=== PATIENT | female | born 1995 | race Caucasian/White ===

== ENCOUNTER → 2016-08-08 | Outpatient (CLI) | payer OTHER ==
[~2016-08-08] MED LIST: ACET-1311 PO; ANT
[2016-08-08 14:38] LABS: URINE APPEARANCE CLEAR (CLEAR); URINE BILIRUBIN NEG (NEG); URINE COLOR YELLOW; URINE NITRITE NEG (NEG); URINE PH 6.5 (4.5-7.5); URINE SPECIFIC GRAVITY 1.025 (1.000-1.030); UROBILINOGEN NEG (NEG)
[2016-08-08 14:50] LABS: MANUAL MICROSCOPIC REQUIRED? NO; REVIEW REQ? NO
--- NOTE | 2016-08-10 13:11 | CODING QUERY NO DIAGNOSIS ---
TREATMENT RENDERED WITHOUT A DIAGNOSIS : 1995 To promote full compliance with coding requirements relating to patient care, physician participation is requested in all cases of bail agent uncertainty. Please assist us with providing a diagnosis/symptom for the test(s) below: A diagnosis/symptom was not documented on your Order. A valid diagnosis/symptom is required to bill all insurances. Please remember that we are unable to code a diagnosis of rule out, probable, possible, questionable, or suspected. Tests that require a diagnosis: DOS: 08/08/16 * UA CLEAN CATCH DIAGNOSIS: * URINE CULTURE PREGNA DIAGNOSIS: Provider Signature: Date: Thank you Montse Yoder Health Information Management Once completed, please kindly fax back to [phone] For questions please call [phone]
== END | disposition home or self-care (01) ==
LOC: EDBD → C.LABSPEC 13:48
PROVIDERS: ATTEND Obstetrics & Gynecology
DX: Z34.90 Encounter for supervision of normal pregnancy, unspecified, unspecified trimester (principal)

== ENCOUNTER → 2016-08-16 | Outpatient (CLI) | payer OTHER ==
[2016-08-16 15:34] LABS: BASO % 0.2 %; BASO ABS # 0.02 K/uL (0-0.2); COMPLETE YES; EOS % 1.2 %; HEMATOCRIT 40.1 % (37-47); IG% 0.2 %; LYMPH % 15.2 %; LYMPH ABS # 1.42 K/uL (1.2-3.4); MEAN CELL VOLUME 81.7 fL (80-100); MEAN CORPUSCULAR HEMOGLOBIN 28.9 pg (25-34); MEAN CORPUSCULAR HGB CONC 35.4 g/dl (32-36); MEAN PLATELET VOLUME 11.5 fL (7.4-10.4); MONO % 10.7 %; NEUT % 72.5 %; PLATELET COUNT 209 K/uL (130-400); RED BLOOD COUNT 4.91 M/uL (4.2-5.4); WHITE BLOOD COUNT 9.34 K/uL (4.8-10.8)
== END | disposition home or self-care (01) ==
LOC: C.LAB1850 14:41
PROVIDERS: ATTEND Obstetrics & Gynecology
DX: Z34.90 Encounter for supervision of normal pregnancy, unspecified, unspecified trimester (principal)

== ENCOUNTER → 2016-08-16 | Outpatient (CLI) | payer OTHER ==
[2016-08-19 00:57] LABS: CHLAMYDIA TRACH RNA*** NOT DETECTED (NOT DETECTED); GC (NEIS GONORRHOEAE)RNA** NOT DETECTED (NOT DETECTED)
== END | disposition home or self-care (01) ==
LOC: C.LABSPEC 17:58
PROVIDERS: ATTEND Obstetrics & Gynecology
DX: Z34.90 Encounter for supervision of normal pregnancy, unspecified, unspecified trimester (principal)

== ENCOUNTER → 2017-01-12 | Outpatient (CLI) | payer OTHER ==
[2017-01-12 14:45] LABS: URINE APPEARANCE CLEAR (CLEAR); URINE BILIRUBIN NEG (NEG); URINE COLOR DK YELLOW; URINE EPITHELIAL CELL AUTO >30 /lpf (0-5); URINE NITRITE NEG (NEG); URINE PH 6.5 (4.5-7.5); URINE SPECIFIC GRAVITY 1.021 (1.000-1.030); UROBILINOGEN NEG (NEG)
[2017-01-12 14:47] LABS: MANUAL MICROSCOPIC REQUIRED? NO; REVIEW REQ? NO
== END | disposition home or self-care (01) ==
LOC: C.LABSPEC 13:56
PROVIDERS: ATTEND Obstetrics & Gynecology
DX: Z34.82 Encounter for supervision of other normal pregnancy, second trimester (principal); Z3A.00 Weeks of gestation of pregnancy not specified

== ENCOUNTER → 2017-02-23 | Outpatient (CLI) | payer OTHER ==
[2017-02-23 15:04] LABS: HEMATOCRIT 32.4 % (37-47)
== END | disposition home or self-care (01) ==
LOC: C.LAB1850 13:41
PROVIDERS: ATTEND Obstetrics & Gynecology
DX: Z34.82 Encounter for supervision of other normal pregnancy, second trimester (principal); Z3A.00 Weeks of gestation of pregnancy not specified

== ENCOUNTER 2017-03-10 10:51 | Emergency (ER) | payer OTHER ==
[~2017-03-10] VITALS: Ht 167.6 cm; Wt 85.2 kg
[2017-03-10 10:54] VITALS: TEMP 36.8; Ht 167.6 cm; Wt 85.2 kg
[2017-03-10 11:28] LABS: URINE APPEARANCE CLEAR (CLEAR); URINE BILIRUBIN NEG (NEG); URINE COLOR YELLOW; URINE NITRITE NEG (NEG); URINE PH 7.5 (4.5-7.5); URINE SPECIFIC GRAVITY 1.016 (1.000-1.030); UROBILINOGEN NEG (NEG); ZZUR CULT IF INDIC CLEAN CATCH NO
[2017-03-10 11:31] LABS: MANUAL MICROSCOPIC REQUIRED? NO; REVIEW REQ? NO
--- NOTE | 2017-03-10 11:38 | EMERGENCY ROOM VISIT NOTE ---
History Report prepared by Cindy: Vanessa Martinez Under the Supervision of: Dr. Dedrick Vazquez M.D. First contact with patient: 11:02 Chief Complaint: FALL Stated Complaint: BACK PAIN FROM FALL,37 WKS,PER L&D SEE HERE FIRST History of Present Illness The patient is a 21 year old female who presents to the Emergency Room with complaints of an episode of a fall occurring SYRUP BLENDER. The patient is 36 weeks . She slipped walking down the stairs this morning and estimates that she fell down 8 stairs. She denies LOC. She is complaining of right shoulder pain that is worsened with movement. She also notes mid-back pain. The patient rates her pain as a 4/10 in severity. She has felt the baby moving since her fall. She denies any vaginal bleeding. The patient is /A0. This has been a normal . Source of History: patient Onset: SYRUP BLENDER Position: other (global) Symptom Intensity: 4/10 Quality: other (fall) Timing: other (episode) Modifying Factors (Worsening): movement Associated Symptoms: + back pain Note: Pt notes right shoulder pain. Pt denies vaginal bleeding. Review of Systems All systems have been listed, reviewed, and are negative other than those previously mentioned. Please see Additional Medical History Sheet. Past Medical & Surgical Medical Problems: (1) No significant active problems Family History No pertinent history stated. Social History Smoking Status: Never Smoker Marital Status: in relationship Housing Status: lives with family Current/Historical Medications No Active Prescriptions or Reported Meds Allergies Coded Allergies: Latex (Unverified Allergy, Unknown, ITCHY, 03/10/17) Penicillins (Unverified Allergy, Unknown, UNKNOWN, 03/10/17) Physical Exam Vital Signs Date Time Temp Pulse Resp B/P (MAP) Pulse Ox O2 Delivery O2 Flow Rate FiO2 03/10/17 11:57 97 20 102/55 97 03/10/17 10:54 36.8 102 18 114/73 98 Room Air Physical Exam GENERAL: Patient awake, alert, oriented x 3. Patient follows commands. Patient does not appear toxic. Patient is adequately hydrated and well- nourished. SKIN: No erythema, pallor, cyanosis or rash HEENT: Normal head, pupils equal, reactive to light and accommodation. Ears normal. Oral cavity and posterior pharynx appear normal. Neck: Without adenopathy, no neck vein distention. LUNGS: Clear to auscultation. No wheezes, no rales, no rhonchi. HEART: No murmurs. No gallops. No rubs ABDOMEN: No masses, no rebound, no hepatomegaly or splenomegaly. BACK: Patient has slight tenderness over lower thoracic upper lumbar region, no deformity, no break in skin, no bruise. Patient able to bend over without significant pain. EXTREMITIES: No signs of trauma. Slight tenderness in right shoulder, no pain, FROM of both shoulders, no pain with abduction, flexion/extension intact. NEUROLOGIC: Cranial nerves II-XII within normal limits. No gross motor sensory function deficits. Medical Decision & Procedures Laboratory Results Test 03/10/17 11:06 Urine Color YELLOW Urine Appearance CLEAR (CLEAR) Urine pH 7.5 (4.5-7.5) Urine Specific [place] 1.016 (1.000-1.030) Urine Protein NEG (NEG) Urine Glucose (UA) NEG (NEG) Urine Ketones NEG (NEG) Urine Occult Blood NEG (NEG) Urine Nitrite NEG (NEG) Urine Bilirubin NEG (NEG) Urine Urobilinogen NEG (NEG) Urine Leukocyte Esterase NEG (NEG) Laboratory results as stated above per my review. ED Course 1102: Past medical records reviewed. The patient was evaluated in room C3. A complete history and physical examination was performed. 1104: Labor & delivery nurses arrived in the department. They will do a doppler. 1149: The patient discharged to L&D at this time. Medical Decision Nurses notes reviewed. Medical history sheet reviewed. Differential diagnosis includes but is not limited to: fall, fractures, contusions, . The patient is here after fall down 8-10 steps. There was no loss of consciousness. There was no head or neck injury. The patient hurt her right shoulder and mid back. Examination today reveals no signs of fracture or dislocation. Urinalysis was negative for blood. She is able to move both shoulders without difficulty. She is able to bend over without difficulty. I do not believe the benefit outweighs the risk in obtaining imaging on this patient. The patient was sent to the labor and delivery department for further evaluation of her . Medication Reconcilliation Current Medication List: was personally reviewed by me Blood Pressure Screening Patient's blood pressure: Normal blood pressure Impression Primary Impression: Fall Additional Impression: Scribe Attestation The scribe's documentation has been prepared under my direction and personally reviewed by me in its entirety. I confirm that the note above accurately reflects all work, treatment, procedures, and medical decision making performed by me. Departure Information Dispostion Home / Self-Care Prescriptions No Active Prescriptions or Reported Meds Referrals No Doctor, Assigned (PCP) Patient Instructions My [facility] Additional Instructions Go directly to labor and delivery department for further evaluation. Problem Qualifiers Primary Impression: Fall Encounter type: initial encounter Qualified Codes: W19.XXXA - Unspecified fall, initial encounter Additional Impression: Weeks of gestation: 36 weeks Qualified Codes: Z3A.36 - 36 weeks gestation of
[2017-03-10 11:57] VITALS: BP 102/55; PULSE 97; O2SAT 97
== END 2017-03-10 12:04 | disposition home or self-care (01) ==
LOC: C.EDB 10:56 → C.EDC 12:04
DX: O26.93 Pregnancy related conditions, unspecified, third trimester (principal); M54.5 Low back pain; Z3A.36 36 weeks gestation of pregnancy; W10.8XXA Fall (on) (from) other stairs and steps, initial encounter; Z88.0 Allergy status to penicillin; Z91.040 Latex allergy status

== ENCOUNTER 2017-03-10 12:00 | Outpatient (CLI) | payer OTHER ==
--- NOTE | 2017-03-16 13:10 | EDITING REQUIRED CODING QUERY ---
DIAGNOSIS NEEDED To promote full compliance with coding requirements relating to patient care, physician participation is requested in all cases of senior cytogenetics laboratory director uncertainty. Please assist us with the question(s) below: Coding Question: The patient received care in labor and delivery on 03/10/17 as noted within the record. Please document the diagnosis that is being addressed by the medication/treatment. Provider Response: DIAGNOSIS: contractions WEEKS GESTATION: term Thank you for your assistance, Renae De La Vega - Vessel Specialist
== END 2017-03-10 14:05 | disposition home or self-care (01) ==
LOC: C.OPB 12:00 → C.LD 12:01 → C.OPB 14:05
PROVIDERS: ATTEND Obstetrics & Gynecology
DX: O62.9 Abnormality of forces of labor, unspecified (principal); Z3A.00 Weeks of gestation of pregnancy not specified

== ENCOUNTER 2017-04-04 05:14 | Inpatient (IN) | payer OTHER ==
[~2017-04-04] VITALS: Ht 167.6 cm; Wt 87.9 kg
[2017-04-04] MEDS ORDERED: LACTATED RINGER'S 1000ML 1,000 ML IV SCH (05:24)
[2017-04-04] MEDS ORDERED: LACTATED RINGER'S 1000ML 1,000 ML IV PRN (05:24)
[2017-04-04] MEDS ORDERED: LACTATED RINGER'S 1000ML 500 ML IV PRN ×2 (05:26→08:30)
[2017-04-04] MEDS ORDERED: OXYTOCIN 30 UNITS/500ML NSS IV PRN ×2 (05:30→12:30)
[2017-04-04 05:59] VITALS: Ht 167.6 cm; Wt 87.9 kg
[2017-04-04 06:06] LABS: HEMATOCRIT 33.1 % (37-47); MEAN CELL VOLUME 76.1 fL (80-100); MEAN CORPUSCULAR HEMOGLOBIN 23.7 pg (25-34); MEAN CORPUSCULAR HGB CONC 31.1 g/dl (32-36); MEAN PLATELET VOLUME 10.2 fL (7.4-10.4); PLATELET COUNT 163 K/uL (130-400); RED BLOOD COUNT 4.35 M/uL (4.2-5.4); WHITE BLOOD COUNT 13.06 K/uL (4.8-10.8)
[2017-04-04] MEDS ORDERED: ANT ×2 (06:23)
[2017-04-04] MEDS ORDERED: ACET-1311 PO ×2 (06:24)
[2017-04-04] MEDS ORDERED: EpHEDrine SULFATE INJ 50 MG/ML AMP ONE (07:33)
[2017-04-04] MEDS ORDERED: BUPIVACAINE 0.25% 30 ML VIAL ONE (07:33)
[2017-04-04] MEDS ORDERED: FENTANYL CITRATE INJ 50 MCG/1 ML 2 ML VIAL ONE (07:33)
[2017-04-04] MEDS ORDERED: FENTANYL 2MCG/ML ROPIV 1.25MG/ML 100ML BAG EPI ONE (07:33)
[2017-04-04] MEDS ORDERED: NALOXONE HCL INJ 0.4 MG/1 ML VIAL/CARP IV PRN (08:30)
[2017-04-04] MEDS ORDERED: EpHEDrine SULFATE INJ 50 MG/ML AMP IV PRN (08:30)
[2017-04-04] MEDS ORDERED: DiphenhydrAMINE HCL 50 MG/ML VIAL IV PRN (08:30)
[2017-04-04] MEDS ORDERED: ONDANSETRON INJ 2 MG/ML 2 ML VIAL IV PRN (08:30)
[2017-04-04] MEDS ORDERED: FENTANYL 2MCG/ML ROPIV 1.25MG/ML 100ML BAG EPI PRN (08:30)
[2017-04-04] MEDS ORDERED: NALBUPHINE HCL INJ 10 MG/ML AMP IV PRN (08:30)
[2017-04-04] MEDS ORDERED: NALOXONE HCL INJ 1 MG in SODIUM CHLORIDE 0.9% 1000ML 1,000 ML IV PRN (08:30)
[2017-04-04] MEDS ORDERED: METHYLERGONOVINE MALEATE 0.2 MG/ML AMP ONE (12:02)
[2017-04-04] MEDS ORDERED: LANOLIN OINT EXT PRN ×2 (12:30)
[2017-04-04] MEDS ORDERED: SUPERCREAM 0.870 % 15GM JAR EXT PRN (12:30)
[2017-04-04] MEDS ORDERED: BENZOCAINE 20% AER SPR 82.5 GM CAN EXT PRN (12:30)
[2017-04-04] MEDS ORDERED: HYDROCORTISONE ACETATE 25 MG SUPP PR PRN (12:30)
[2017-04-04] MEDS ORDERED: METHYLERGONOVINE MALEATE 0.2 MG/ML AMP IM ONE (12:45)
[2017-04-04] MEDS ORDERED: DIPHTHERIA/TETANUS/PERTUSSIS 0.5 ML SYR/VIAL IM. ONE (12:45)
--- NOTE | 2017-04-04 13:07 | DELIVERY SUMMARY ---
DATE OF OPERATION: 04/04/2017 PREOPERATIVE DIAGNOSES: 1. Intrauterine at 39-0/7 weeks. 2. Spontaneous rupture of membranes and active labor. POSTOPERATIVE DIAGNOSES: 1. Intrauterine at 39-0/7 weeks. 2. Spontaneous rupture of membranes and active labor. 3. Moderate shoulder dystocia. PROCEDURES: 1. Epidural anesthesia. 2. Normal spontaneous vaginal delivery. 3. McRobert's maneuver, superpubic pressure, counter clockwise rotation of the anterior shoulder. 4. Inferior periclitoral laceration and left labial laceration with repair. SURGEON: Nasrin Joaquin MD. ANESTHESIA: Epidural. ESTIMATED BLOOD LOSS: 500 mL. DESCRIPTION OF PROCEDURE: The patient presented to the labor and delivery in active labor and grossly ruptured. She was 6 cm dilated. She underwent an epidural anesthesia and then progressed to complete, complete in 0 to +1 station. She was feeling a lot of pressure and wanted to push, she was allowed to push. She then pushed effectively although the baby moved somewhat slowly. I was concerned that we were going to have a shoulder dystocia so called for extra help. The patient was able to deliver the vertex spontaneously initially in VINOD position but then they had rest due to GEO position. There was no nuchal cord. A moderate shoulder dystocia was then encountered which was resolved with placing the bed flat, McRobert's maneuver, suprapubic pressure and then rotating the anterior shoulder which was the baby's left shoulder, counter clock tanner. The rest of the body then delivered slowly. There was an immediate cry and the baby was vigorous so the nose and mouth were bulb suctioned and the cord was clamped and cut. The infant was placed on maternal abdomen for drying and attention. Cord blood and segment were obtained. Placenta was delivered spontaneously intact with a 3-vessel cord. Hemostasis was obtained with dilute Pitocin, fundal massage and IM Methergine. I did explore the uterus with return of some minimal clot 550 mL and no products of conception. Attention was then turned to tears. Cervix, sulci, rectum and perineum were intact. The left labial laceration was repaired with interrupted stitches of 3-0 and 4-0 Vicryl and then an inferior periclitoral laceration was noted. Two bleeders were noted, each were attended to with a [id number] suture of 4-0 Vicryl until hemostasis was good and then the skin edges were approximated with interrupted stitches of 4-0 Vicryl. Estimated blood loss 500 mL. Mother and baby doing well at the end of the delivery. Apgars 8 and 9, weight pending. I attest to the content of the Intraoperative Record and any orders documented therein. Any exception s are noted below.
--- NOTE | 2017-04-04 13:12 | DELIVERY SUMMARY ---
DATE OF OPERATION: 04/04/2017 PREOPERATIVE DIAGNOSES: 1. Intrauterine at 39 weeks. 2. Active labor with spontaneous rupture of membranes. POSTOPERATIVE DIAGNOSES: 1. Intrauterine at 39 weeks. 2. Active labor with spontaneous rupture of membranes. 3. Moderate shoulder dystocia. PROCEDURES: 1. Epidural anesthesia. 2. Normal spontaneous vaginal delivery. 3. Periclitoral laceration and left labial laceration with repair. SURGEON: Dr. Nasrin Joaquin. ANESTHESIA: Epidural. ESTIMATED BLOOD LOSS: 500 mL. DESCRIPTION OF PROCEDURE: The patient presented to labor and delivery, ruptured and in active labor. She underwent epidural anesthesia and progressed from 8 cm to 10 cm and 0 to +1 station. She was feeling pressure to push and so, was allowed to push. The patient moved the vertex very slowly. I suspect we were going to have a shoulder dystocia, but she did continue to have positive movement with her own effort. The fetus initially delivered facing VINOD and then restituted to GEO. There was no nuchal cord. Moderate shoulder dystocia was encountered, which was relieved by placing the patient flat, Mary and suprapubic pressure and then rotating the anterior shoulder counter clock tanner. The shoulder dystocia lasted less than a minute. The rest of the body then slowly delivered. There was immediate cry. The nose and mouth were bulb suctioned and the cord was clamped and cut. The infant was placed on the maternal abdomen for drying and attention. Cord blood and segment were obtained. Placenta was delivered spontaneously intact with a 3-vessel cord. Cervix, sulci, and rectum as well as the perineum were examined and found to be intact. The left labial laceration was repaired with 3-0 and 4-0 Vicryl in an interrupted fashion. There was a periclitoral tear just underneath the clitoris. There were 2 bleeding vessels from this. Each attended to with a [id number] of suture of 4-0 Vicryl to achieve hemostasis. The skin was then reapproximated with interrupted sutures of 4-0 Vicryl and hemostasis was noted to be excellent. The placenta was delivered spontaneously intact with a 3-vessel cord. Hemostasis was obtained with dilute Pitocin, fundal massage and IM methargen. I also explored the uterus with return of very minimal clot and no products. Estimated blood loss 500 mL. Apgars were 8 and 9. Mother and baby doing well at the end of the delivery. I attest to the content of the Intraoperative Record and any orders documented therein. Any exception s are noted below.
[2017-04-04 14:40] VITALS: BP 119/69; PULSE 100; TEMP 36.9; O2SAT 97
[2017-04-04] MEDS: IBUPROFEN 600 MG TAB PO PRN ×2 (14:45→21:02)
[2017-04-04 15:30] VITALS: BP 132/74; PULSE 97; TEMP 36.8
--- NOTE | 2017-04-04 16:49 | Anesthesia Procedure Note ---
Anesthesia Epidural Removal Nt Date & Time Apr 04, 2017 at 16:49 Vital Signs Pain Intensity: 3.0 Vital Signs Past 12 Hours Date Time Temp Pulse Resp B/P (MAP) Pulse Ox O2 Delivery O2 Flow Rate FiO2 04/04/17 15:30 36.8 97 16 132/74 (93) Room Air 04/04/17 15:30 Room Air 04/04/17 14:40 36.9 100 20 119/69 (86) 97 Room Air Notes Mental Status: alert / awake / arousable, participated in evaluation Nausea / Vomiting: adequately controlled Pain: adequately controlled Airway Patency, RR, SpO2: stable & adequate BP & HR: stable & adequate Hydration State: stable & adequate Neuraxial Anesthesia: was administered Anesthetic Complications: no major complications apparent, pt satisfied with anesthetic care Epidural: removed without complications, with tip intact
[2017-04-04 19:30] VITALS: BP 103/65; PULSE 85; TEMP 36.8
[2017-04-04] MEDS: DOCUSATE SODIUM 100 MG CAP PO SCH (19:56)
[2017-04-04 23:50] VITALS: BP 102/66; PULSE 94; TEMP 37.1
[2017-04-05] MEDS: IBUPROFEN 600 MG TAB PO PRN ×4 (03:20→19:43)
[2017-04-05 03:25] VITALS: BP 110/65; PULSE 69; TEMP 36.7
[2017-04-05] MEDS: OXYCODONE/ACETAMINOPHEN 5-325 TAB PO PRN ×3 (03:58→22:26)
--- NOTE | 2017-04-05 07:22 | Progress Note ---
Subjective Apr 05, 2017. Subjective conversation w/ patient, physical exam, chart review, lab review Ambulation: ambulating normally Voiding: no voiding problems Passing Gas: Yes Diet Tolerance: Regular Diet Lochia: Moderate Feeding Type: Breast Feeding Pain: controlled Review of Systems Respiratory: No shortness of breath Cardiac: No chest pain Abdomen: No nausea, No vomiting Female : No dysuria Objective Vital Signs Date Time Temp Pulse Resp B/P (MAP) Pulse Ox O2 Delivery O2 Flow Rate FiO2 04/05/17 03:25 36.7 69 18 110/65 (80) Room Air 04/04/17 23:50 Room Air 04/04/17 23:50 37.1 94 18 102/66 (78) Room Air 04/04/17 19:30 36.8 85 16 103/65 (78) Room Air 04/04/17 15:30 36.8 97 16 132/74 (93) Room Air 04/04/17 15:30 Room Air 04/04/17 14:40 36.9 100 20 119/69 (86) 97 Room Air Physical Exam General Appearance: WELL-APPEARING, WD/WN, NO APPARENT DISTRESS Respiratory/Chest: lungs clear, normal breath sounds, no respiratory distress Cardiovascular: regular rate, rhythm, no gallop Abdomen: normal bowel sounds, soft Fundus: Firm, Tender (appropriately tender), Relation to Umbilicus (at level of U) Extremities: non-tender, normal inspection, no calf tenderness Laboratory Results Last 24 Hours Test 04/05/17 04:44 Assessment and Plan Post- Day#: 1 Continue Routine Care: O+ / GBS - / RI Hbg 10.3 on adm, today pending. Pt's pain is controlled Encourage ambulation, , continue motrin/tylenol Continue routine post care FRANCISCAGISSELLE CAMP PGY 1 FMR Resident Physician Supervision Note: I interviewed and examined the patient. Discussed with Dr. Camp and agree with findings and plan as documented in the note. Any exceptions or clarifications are listed here: Doing well. Routine PP1. Documented By: Nasrin Joaquin Resident Tracking Resident Involvement: Resident Care Provided Care Provided: OB Delivery
[2017-04-05 07:38] VITALS: BP 105/68; PULSE 78; TEMP 36.6
[2017-04-05] MEDS: DOCUSATE SODIUM 100 MG CAP PO SCH ×2 (07:50→19:41)
[2017-04-05 08:19] LABS: HEMATOCRIT 26.1 % (37-47)
[2017-04-05 12:20] VITALS: BP 119/73; PULSE 102; TEMP 36.6
[2017-04-05 15:25] VITALS: BP 113/68; PULSE 89; TEMP 36.5
[2017-04-05] MEDS: ACETAMINOPHEN 325 MG TAB PO PRN (16:21)
[2017-04-05 23:15] VITALS: BP 120/67; PULSE 89; TEMP 36.4; O2SAT 97
[2017-04-06] MEDS: IBUPROFEN 600 MG TAB PO PRN ×2 (04:41→11:59)
--- NOTE | 2017-04-06 06:09 | Discharge Instructions ---
Discharge Instructions Date of Service Apr 06, 2017. Admission Reason for Admission: LABOR Discharge Discharge Diagnosis / Problem: vaginal delivery Discharge Goals Goal(s): Routine recovery after delivery Activity Recommendations Activity Limitations: per Instructions/Follow-up section . Instructions / Follow-Up Instructions / Follow-Up ACTIVITY RECOMMENDATIONS: * Gradual return to full activity over the next 2-3 weeks. * No lifting - nothing heavier than baby over the next 2-3 weeks. * Do not engage in vigorous exercise, sexual activity or sports until cleared by your physician. * Do not drive or operate any motorized equipment until cleared by your physician. * You may shower/bathe daily. MEDICATIONS: For discomfort or pain, you may use Acetaminophen (Tylenol), Ibuprofen (Advil), or Naproxen (Aleve) following the package directions. For constipation you may use Colace following the package directions. BREAST CARE: If you are not breast feeding: * Wear a supportive bra 24 hours a day for one to two weeks. * Avoid stimulating your breasts and nipples as much as possible during the first few weeks after delivery. * When taking a shower, have the warm water hit your back, not breasts. * When your breasts feel full, apply ice packs. Usually three to four times a day helps ease the discomfort. * Take a mild pain medication (Tylenol / Motrin) when you are uncomfortable. If breast feeding: * Use breast milk to lubricate nipples. Lansinoh cream may be used for sore nipples. You do not need to remove cream prior to breast feeding. If using a different brand of cream, check the label for directions regarding removal of cream prior to nursing. * Wear a supportive bra. * If having problems with breasts or breast feeding, call a performance improvement consultant or your health care provider. EPISIOTOMY CARE: After delivery, if you have an episiotomy (stitches), the following steps will ease discomfort and aid healing. * For the first 24 hours after delivery, place ice packs next to your episiotomy to help reduce swelling. * After the first 24 hour-period, sitz baths, either portable or in the tub, are suggested. A shower with a shower arm sprayed over the episiotomy may be comforting. * Lien care should be done after each voiding and bowel movement. Squirt warm water from a plastic bottle over the perineum (region of the body between the anus and urinary opening) and pat dry. * Use Dermoplast to ease discomfort. Shake container. [place] directly over the episiotomy. Place a Tucks on a clean sanitary pad next to your episiotomy. SPECIAL CARE INSTRUCTIONS: When you are discharged from the hospital, it is important for you to follow the instructions listed below: * During the first week at home, you should be able to care for yourself and your baby. In addition, the usual light household activities are encouraged. * Limit your activities to the way you feel. Do not try to clean the house or move furniture. Be sensible. * If you actively engage in sports and have done so up until the time of your delivery, you may resume these activities as soon as you feel able. This may take up to one month or even longer. Use good judgment. * Continue to take your vitamins for at least six weeks after the of your baby. * Your diet need not be limited unless you were on a special diet before your delivery. Breast-feeding mothers need around 2500 calories per day and at least 64-80 ounces of fluid per day (8 to 10 glasses). * You should eat foods from the four major food groups. Crash diets or fad diets are to be avoided. Eating lean meats, fresh fruits and vegetables, low-fat dairy products, high fiber foods and a regular exercise program, will help you get back to your pre- weight without putting your health at risk. * Constipation is sometimes a problem after delivery. Take a mild laxative as needed. If breast feeding, Milk of Magnesia is acceptable to use. You may use a suppository or Fleets enema if no episiotomy. * A daily shower or tub bath is suggested. Be sure to thoroughly and gently dry the perineum. * A bloody vaginal discharge will usually continue until around four weeks post . A small amount of bleeding may continue for as long as six weeks. Vaginal discharge changes from the bright red bleeding after delivery to pink then brownish and finally yellowish-pink before becoming white and disappearing. * Bleeding may increase with activity. Your first period may come in 4-8 weeks. If you are breast feeding, your period may be delayed even longer. * [place] (sex) can begin whenever both you and your partner feel comfortable and do not have any form of genital infection. It is recommended that you wait at least six weeks for internal and external healing to occur. If you have questions, please talk to your health care practitioner. A condom should be used to prevent infection and . * Foreplay, gentle intercourse and lubrication is very important the first several times to prevent pain. A water-based lubricant such as K-Y jelly or Astroglide may be used. * If you have RH negative blood and your baby is RH positive, you will receive RHOGAM by injection prior to discharge. The nurse will give you a card to keep with you that has the date and place that you received RHOGAM after delivery. * During your care, you had a Rubella screen done to check for the presence of rubella antibodies in your blood. If your test was negative, you will receive a Rubella vaccine prior to discharge. This vaccine may cause a fever, soreness at the injection site and flu-like symptoms. If these symptoms persist, notify your health care practitioner. is not advised for one month after a Rubella vaccine. * Verbalizes understanding of car seat law as reviewed with patient nursing. * Car Seat hand-out given and reviewed with patient by nursing. * Shaken baby information reviewed with patient by nursing. Call you doctor if: * Heavy bleeding (saturating several pads an hour) or passing clots the size of your fist. * A fever >101 degrees F (38.3 degrees C) on two occasions four hours apart and /or chills. * Unusual pain in the pelvic or vaginal areas. * "Baby Blues" lasting longer than two weeks. If you have any questions or concerns, call your health care practitioner at . FOLLOW UP VISIT: * Please call the office at to schedule a 6 week examination. It is important you keep this appointment. It is important for you to make arrangements for either yearly or twice yearly check-ups thereafter. Current Hospital Diet Patient's current hospital diet: Regular OB Diet Discharge Diet Recommended Diet: Regular Diet Pending Studies Studies pending at discharge: no Medical Emergencies . Who to Call and When: Medical Emergencies: If at any time you feel your situation is an emergency, please call 911 immediately. . Non-Emergent Contact Non-Emergency issues call your: Primary Care Provider . . "Provider Documentation" section prepared by Claudette Bar. . VTE Core Measure Inpt VTE Proph given/why not?: Treatment not indicated
--- NOTE | 2017-04-06 06:33 | Progress Note ---
Subjective Apr 06, 2017. Subjective conversation w/ patient, physical exam Ambulation: ambulating normally Voiding: no voiding problems Passing Gas: Yes Diet Tolerance: Regular Diet Lochia: Moderate Feeding Type: Breast Feeding Review of Systems Constitutional: No fever, No chills Respiratory: No cough Cardiac: No chest pain Abdomen: No nausea, No vomiting Objective Vital Signs Date Time Temp Pulse Resp B/P (MAP) Pulse Ox O2 Delivery O2 Flow Rate FiO2 04/05/17 23:15 36.4 89 18 120/67 (84) 97 Room Air 04/05/17 23:15 97 Room Air 04/05/17 15:25 36.5 89 20 113/68 (83) Room Air 04/05/17 15:25 Room Air 04/05/17 12:20 36.6 102 16 119/73 (88) Room Air 04/05/17 08:05 Room Air 04/05/17 07:38 36.6 78 18 105/68 (80) Room Air Physical Exam General Appearance: WELL-APPEARING, NO APPARENT DISTRESS Respiratory/Chest: no respiratory distress, no accessory muscle use Cardiovascular: no edema Abdomen: non tender, soft Fundus: Firm Extremities: no pedal edema, no calf tenderness Laboratory Results Last 24 Hours Test 04/05/17 07:58 Hemoglobin 8.1 g/dL Hematocrit 26.1 % Assessment and Plan Problem List Medical Problems: (1) Fall Status: Acute (2) Status: Acute Post- Day#: 2 Continue Routine Care: Discharge instructions reviewed.
[2017-04-06] MEDS: ACETAMINOPHEN 325 MG TAB PO PRN (07:13)
[2017-04-06] MEDS: DOCUSATE SODIUM 100 MG CAP PO SCH (08:56)
[2017-04-06 09:00] VITALS: BP 117/70; PULSE 88; TEMP 36.4; O2SAT 98
[2017-04-06 12:15] VITALS: BP_DIAS 70; PULSE 88; TEMP 36.4
== END 2017-04-06 12:15 | disposition home or self-care (01) | DRG 775 ==
LOC: C.LD 05:14 → C.OPB 05:14 → C.LD 05:26 → C.OPB 05:26 → C.OBG 14:30
PROVIDERS: ADMIT Obstetrics & Gynecology; ATTEND Obstetrics & Gynecology
PROC: 0HQ9XZZ Repair Perineum Skin, External Approach (ICD-10-PCS; principal; 2017-04-04)
PROC: 10E0XZZ Delivery of Products of Conception, External Approach (ICD-10-PCS; principal; 2017-04-04)
DX: O66.0 Obstructed labor due to shoulder dystocia (principal); O70.0 First degree perineal laceration during delivery; Z3A.39 39 weeks gestation of pregnancy; Z37.0 Single live birth

== ENCOUNTER → 2017-10-03 | Outpatient (CLI) | payer OTHER | END | disposition home or self-care (01) | LOC: C.PAPS 17:48 | PROVIDERS: ATTEND Obstetrics & Gynecology | DX: Z12.4 Encounter for screening for malignant neoplasm of cervix (principal); Z11.51 Encounter for screening for human papillomavirus (HPV) ==

== ENCOUNTER → 2017-10-03 | Outpatient (CLI) | payer OTHER ==
[2017-10-03 17:34] LABS: BASO % 0.1 %; BASO ABS # 0.01 K/uL (0-0.2); EOS ABS # 0.07 K/uL (0-0.5); HEMATOCRIT 36.2 % (37-47); HEMOGLOBIN 12.1 g/dL (12.0-16.0); IG# 0.02 K/uL (0.00-0.02); LYMPH % 21.9 %; MEAN CELL VOLUME 77.4 fL (80-100); MEAN CORPUSCULAR HEMOGLOBIN 25.9 pg (25-34); MEAN CORPUSCULAR HGB CONC 33.4 g/dl (32-36); MONO % 7.5 %; MONO ABS # 0.55 K/uL (0.11-0.59); NEUT % 69.2 %; NEUT ABS # 5.07 K/uL (1.4-6.5); PLATELET COUNT 214 K/uL (130-400); RED CELL DISTRIBUTION WIDTH CV 14.8 % (11.5-14.5); RED CELL DISTRIBUTION WIDTH SD 41.6 fL (36.4-46.3); WHITE BLOOD COUNT 7.32 K/uL (4.8-10.8)
== END | disposition home or self-care (01) ==
LOC: C.LAB1850 15:18
PROVIDERS: ATTEND Obstetrics & Gynecology
DX: Z34.81 Encounter for supervision of other normal pregnancy, first trimester (principal)

== ENCOUNTER 2019-12-30 07:38 | Inpatient (IN) ==
[2019-12-30] MEDS ORDERED: CEFAZOLIN 1000MG 1,000 MG/7.5 ML SYR IV PRN (08:19)
[2019-12-30] MEDS ORDERED: OXYTOCIN 30 UNITS/500 ML BAG IV PRN ×3 (08:19→18:35)
[2019-12-30] MEDS ORDERED: CEFAZOLIN 2000MG 2,000 MG/15 ML SYR IV STA (08:23)
[2019-12-30 08:36] LABS: Hematocrit (blood only) 34.7 % (37-47); Hemoglobin 11.2 g/dL (12.0-16.0); Mean Corpuscular Hemoglobin 25.2 pg (25-34); Platelet Count 145 K/uL (130-400); RDW Coefficient of Variation 14.8 % (11.5-14.5); RDW Standard Deviation 41.7 fL (36.4-46.3); Red Blood Count 4.45 M/uL (4.2-5.4); White Blood Count 7.63 K/uL (4.8-10.8)
[2019-12-30] MEDS: LACTATED RINGER'S 1,000 ML IV PRN ×2 (08:37→16:46)
[2019-12-30 08:38] LABS: Mean Corpuscular Hgb Conc 32.3 g/dL (32-36)
--- NOTE | 2019-12-30 08:41 | History & Physical Report ---
Date of Service December 30, 2019 Assessment & Plan (1) Encounter for induction of labor: PNL: Rh pos, RI, GBS positive, COVID neg Will start cefazolin for GBS positive status Admit, labs, IV Epidural if/when desired; anesthesiology consult placed Proceed with induction of labor per Pitocin augmentation protocol. Anticipate (2) : Admission and Anticipated Discharge Date Admission Date: December 30, 2019 History of Present Illness Primary Care Provider: Chandrakant Horne Svetlana Marinelli is a 24 y/o female currently at 39 2/7 WGA with an DEVIN 01/04/20 as determined by LMP who is here for elective IOL. She has a hx of migraines and is followed by neurology; pt was told to take magnesium and vit B2 daily for BRAVO prevention but she notes that she has not taken either of these in 3 weeks. Pt denies BRAVO at this time. She has been taking Tums for heartburn/nausea; last dose around 0100 this morning. She did not take a PNV throughout the . Pt is GBS+ and has a hx of penicillin allergy. She does desire a PPTL and has signed consent with Dr. Joyce. - contractions; + movement; - fluid loss; - bloody show Had regular appointments with OB. Blood type: O+ Antibody screen: neg Labs 06/06/19 Rubella: immune VDRL/RPR: nonreactive Gonorrhea: neg Chlamydia: neg HIV: neg HbSAg: neg GBS: POSITIVE, allergic to penicillin COVID-19 negative 12/23/19 Other screens: panorama/quad declined Allergies Allergy/AdvReac Type Severity Reaction Status Date / Time bee venom protein (honey bee) Allergy Severe SHORTNESS Verified 12/27/19 11:54 OF BREATH latex Allergy Intermediate ITCHY Verified 12/27/19 11:54 Penicillins Allergy Unknown UNKNOWN Verified 12/27/19 11:54 Home Medications Home Medications Medication Instructions Recorded Confirmed Type magnesium oxide 400 mg (241.3 mg 400 mg PO DAILY #30 tab 08/22/19 12/27/19 Rx magnesium) tablet metoclopramide HCl 5 mg tablet 5 mg PO DAILY PRN #10 tab 08/22/19 12/27/19 Rx riboflavin (vitamin B2) 400 mg 400 mg PO DAILY 10/31/19 12/27/19 History tablet sumatriptan succinate 25 mg tablet See Rx Instructions PO .COMPLEX #8 10/31/19 12/27/19 Rx tab Patient History Medical History (Updated 12/30/19 @ 08:37 by Crystal Fish DO) Encounter for anatomic survey Encounter for pre-operative examination Fall Normal intrauterine in third trimester (spontaneous vaginal delivery) Varicella Surgical History History of adenoidectomy History of myringotomy History of tonsillectomy History of tooth extraction Family History Mother Congestive heart failure Diabetes Uterine cancer Cardiomyopathy Grandmother (Paternal) Breast cancer Grandfather (Maternal) Myocardial infarction Social History Smoking Status: Never smoker Hx Alcohol Use: No Hx Substance Use: No Preferred Language: Yakut Communication Ability: Effective Mail Order Biller Required: No Beliefs That Will Affect Care: None marital status: Single marital status details: Boogie Todd (23) [phone] Current Living Situation: Spouse Current Living Situation Comment: Pt. lives with her 4 children, and FOB, 1 cat, outside cat current occupational status: unemployed current occupation: unemployed Other Information That Helps Us Care for You: No Feels Safe at Home: Yes Safety Concerns: Feels Safe At This Time OB History G1--09/23, 8#3oz, , no issues G2--09/23, sab G3--01/27, , 41 weeks, 9#1oz, no issues G4--03/31, 40 weeks, 10#40z, shoulder dystocia g5--05/01, 39 weeks, 8#3oz, [employer] History noncontributory Review of Systems Denies fever or chills. Denies shortness of breath or cough. Denies chest pain. + heartburn controlled with OTC Tums. Denies breast pain. Denies dysuria or hematuria. + leg swelling. Denies leg pain. Denies headache or changes in vision. Physical Exam Physical Exam: General: Alert, oriented. No acute distress. Cardiac: Regular rate and rhythm, no murmurs/rubs/gallops. Respiratory: Clear to auscultation bilaterally a/p, no wheezes/rales/rhonchi. No increased work of breathing. Symmetrical chest rise. No respiratory distress. Abdomen: Gravid. Vertex position. + heart tones. - palpable contractions. EFW 7-8# Pelvic: Dilation 3cm; Effacement 50%; Station -[address] Botello External FHT and external uterine monitors used; Category I tracing; moderate FHT variability. Lower Extremities: 1+ b/l LE edema. No deep calf pain. Results & Data ([facility]) Vital Signs (Past 12 Hours) Vital Signs Pulse BP 12/30/19 08:08 90 133/70 12/30/19 07:41 102 H 156/78 H Laboratory Results Labs at admission today H.2 Hct: 34.7 WBC: 7.63 Plt: 145 Supervising Physician Co-Signing Physician Notes Resident Physician Supervision Note: I interviewed and examined the patient. Discussed with Dr. Fish and agree with findings and plan as documented in the note. Any exceptions or clarifications are listed here: Patient is a who presents for elective induction at 39 weeks. 3rd delivery complicated by shoulder dystocia with a 10# baby. essentially uncomplicated. category one fetus. GBS positive and will receive ancef. Anticipate . efw 9-10# Documented By: Nasrin Joaquin MD, FACOG
--- NOTE | 2019-12-30 12:19 | Labor Progress Brief Note ---
Date of Service December 30, 2019 Subjective uncomfortable, requesting epidural Assessment & Plan (1) Encounter for induction of labor: plan epidural and then likely arom. anticipate . Admission and Anticipated Discharge Date Admission Date: December 30, 2019 Physical Exam Constitutional: WD/WN, vitals as above Psychiatric: A+Ox3, euthymic affect Genitourinary: cx--4/75/-2 toco--q4-5min, pit at 10 efm--145 with mod variability, accels to 160s, no decels Results & Data ([facility]) Vital Signs (Past 12 Hours) Vital Signs Temp Pulse Resp BP 12/30/19 08:56 37.0 C 90 22 133/70 12/30/19 08:08 90 133/70 12/30/19 07:41 102 H 156/78 H Coding Level of Care Code None Diagnoses Encounter for induction of labor Z34.90
[2019-12-30] MEDS ORDERED: ePHEDrine sulfate 50 MG/ML AMP ONE (12:20)
[2019-12-30] MEDS ORDERED: BUPIVACAINE 0.25% 30 ML VIAL ONE (12:20)
[2019-12-30] MEDS ORDERED: fentaNYL 2MCG/ML ROPIV 1.25MG/ML 100 ML BAG EPI ONE (12:21)
[2019-12-30] MEDS ORDERED: fentaNYL citrate 100 MCG/2 ML VIAL ONE (12:21)
--- NOTE | 2019-12-30 12:24 | Anesthesiology Consultation ---
Date of Service December 30, 2019 Assessment & Plan ASA ASA2 Proposed Anesthesia Anesthesia Type: Labor Epidural Risk / Benefits Reviewed With: PT / POA / Parent / Guardian, Accepts Plan and Informed Consent Obtained History Height/Weight Height: 5 ft 6 in Weight: 91.777 kg Allergies Allergy/AdvReac Type Severity Reaction Status Date / Time bee venom protein (honey bee) Allergy Severe SHORTNESS Verified 12/27/19 11:54 OF BREATH latex Allergy Intermediate ITCHY Verified 12/27/19 11:54 Penicillins Allergy Unknown UNKNOWN Verified 12/27/19 11:54 Medications Active Medications Generic Name Dose Route Start Last Admin Trade Name Freq PRN Reason Stop Dose Admin Lactated Ringer's 1,000 mls @ 125 mls/hr 12/30/19 08:19 12/30/19 12:18 Lr IV 01/01/20 08:18 999 mls/hr .Q8H PRN Infusion L&D Protocol Protocol Oxytocin 30 units in 500 mls @ 8 mls/hr 12/30/19 09:37 12/30/19 11:25 Pitocin IV 01/01/20 09:36 0.48 units/hr .Q24H PRN 8 mls/hr Labor Induction/Augmentation Titration Protocol 0.48 UNITS/HR Past Medical History Medical History Encounter for anatomic survey Encounter for pre-operative examination Fall Normal intrauterine in third trimester (spontaneous vaginal delivery) Varicella Exercise / Class Metabolic Activity II 4-5 Yardwork/Stairs/Walk up hill Past Family History Family History Mother Congestive heart failure Diabetes Uterine cancer Cardiomyopathy Grandmother (Paternal) Breast cancer Grandfather (Maternal) Myocardial infarction Past Surgical History Surgical History History of adenoidectomy History of myringotomy History of tonsillectomy History of tooth extraction Past Anesthesia History No Hx of Anesthesia Complications and No Family Hx of Anesthesia Complications History of PONV No Hx of PONV and No Hx of Motion Sickness Social History Smoking Status: Never smoker Hx Alcohol Use: No Hx Substance Use: No Review of Systems denies fever/cough/ colds/ chest pain/ SOB/ NARCISO Constitutional: no fever and no chills Respiratory: no cough and no dyspnea denies NARCISO Cardiovascular: no chest pain and no dyspnea on exertion Physical Exam Vital Signs Last Vital Signs Temp 37.0 C 12/30/19 08:56 Pulse 74 12/30/19 13:26 Resp 18 12/30/19 12:31 BP 126/79 12/30/19 13:22 Pulse Ox 98 12/30/19 13:26 ENMT Mouth: no TMJ abnormality and no dentition abnormality Thyromental Distance: > or= 3.5 Finger Breadths Mallampati Class: II Neck neck extension not limited Respiratory normal respiratory effort; no respiratory distress Auscultation: lungs clear to auscultation bilaterally Cardiovascular Rate/Rhythm: regular rate and regular rhythm Neurologic moves all extremities Psychiatric Orientation: alert and oriented x 3 Testing Laboratory Results 12/30/19 08:27
[2019-12-30] MEDS ORDERED: DiphenhydrAMINE HCL 50 MG/ML VIAL IV PRN (13:29)
[2019-12-30] MEDS ORDERED: ONDANSETRON INJ 2 MG/ML 2 ML VIAL IV PRN (13:29)
[2019-12-30] MEDS ORDERED: NALOXONE HCL 1 MG in SODIUM CHLORIDE 0.9% 1000ML 1,000 ML IV PRN (13:29)
[2019-12-30] MEDS ORDERED: NALOXONE HCL 0.4 MG/1 ML VIAL/CARP IV PRN (13:29)
[2019-12-30] MEDS ORDERED: ePHEDrine sulfate 50 MG/ML AMP IV PRN (13:29)
[2019-12-30] MEDS ORDERED: fentaNYL 2MCG/ML ROPIV 1.25MG/ML 100 ML BAG EPI PRN (13:29)
--- NOTE | 2019-12-30 14:00 | Labor Progress Brief Note ---
Date of Service December 30, 2019 Subjective comfortable with epidural Assessment & Plan (1) Encounter for induction of labor: continue current management. fetus category one. anticipate . Admission and Anticipated Discharge Date Admission Date: December 30, 2019 Physical Exam Constitutional: WD/WN, vitals as above Psychiatric: A+Ox3, euthymic affect Genitourinary: cx--4/75/-2 arom--clear tocoq--2-4min, pit at 10 efm--130s with mod variability, accels present, no decels Results & Data ([facility]) Vital Signs (Past 12 Hours) Vital Signs Temp Pulse Resp BP Pulse Ox 12/30/19 13:56 72 99 12/30/19 13:54 80 102/57 L 12/30/19 13:51 76 98 12/30/19 13:46 77 96 12/30/19 13:41 70 97 12/30/19 13:39 74 116/62 12/30/19 13:36 73 97 12/30/19 13:31 73 98 12/30/19 13:30 18 12/30/19 13:26 74 98 12/30/19 13:22 80 126/79 12/30/19 13:21 77 100 12/30/19 13:16 86 99 12/30/19 13:11 77 99 12/30/19 13:06 81 126/65 98 12/30/19 13:03 75 127/64 12/30/19 13:01 78 97 12/30/19 13:00 82 18 129/61 12/30/19 12:57 79 127/61 12/30/19 12:56 81 97 12/30/19 12:54 78 127/63 12/30/19 12:51 78 128/64 97 12/30/19 12:48 85 132/63 12/30/19 12:46 82 98 12/30/19 12:44 83 129/64 12/30/19 12:42 82 113/66 12/30/19 12:41 83 99 12/30/19 12:36 87 100 12/30/19 12:32 82 137/79 12/30/19 12:31 82 18 88 L 12/30/19 12:30 18 12/30/19 08:56 37.0 C 90 22 133/70 12/30/19 08:08 90 133/70 12/30/19 07:41 102 H 156/78 H Coding Level of Care Code None Diagnoses Encounter for induction of labor Z34.90
[2019-12-30] MEDS ORDERED: METHYLERGONOVINE MALEATE 0.2 MG/ML AMP ONE (18:29)
[2019-12-30] MEDS ORDERED: ACETAMINOPHEN 325 MG TAB PO PRN (18:34)
[2019-12-30] MEDS ORDERED: bisacodyL 10 MG SUPP PR PRN (18:35)
[2019-12-30] MEDS ORDERED: SUPERCREAM 0.870% 15 GM JAR EXT PRN (18:35)
[2019-12-30] MEDS ORDERED: DIPHTHERIA/TETANUS/PERTUSSIS 0.5 ML SYR/VIAL IM ONE (18:35)
[2019-12-30] MEDS ORDERED: METHYLERGONOVINE MALEATE 0.2 MG/ML AMP IM ONE (18:35)
[2019-12-30] MEDS ORDERED: BENZOCAINE 20% AER SPR 82.5 GM CAN EXT PRN (18:35)
[2019-12-30] MEDS ORDERED: HYDROCORTISONE ACETATE 25 MG SUPP PR PRN (18:35)
--- NOTE | 2019-12-30 18:36 | Delivery Summary ---
Vaginal Delivery Summary Date of Service December 30, 2019 Vaginal Delivery Summary Pre-operative Diagnosis: at 39 weeks elective induction of labor Post-operative Diagnosis: same Procedure: pitocin induction epidural arom EBL: 300cc Anesthesia: epidural Procedure: The patient pushed for 2 contractions to deliver a viable female infant in jcak position. The nose and mouth were bulb suctioned on the perineum and then a tight nuchal x 1 was clamped and cut on the perineum. The rest of the was then delivered without difficulty. The baby was vigorous. The nose and mouth were again bulb suctioned and the infant was placed in the maternal abdomen for drying and attention. Cord blood obtained. Placenta delivered spontaneous, intact with a three vessel cord. Cervix/sulci/rectum/perineum were intact. Hemostasis obtained with dilute santosh rochelle and fundal massage. Apgars were 8/9. Mother and baby doing well at the end of the delivery. [facility] [place] Vaginal Delivery Charge Vaginal Delivery Codes: 95096 global code for the antepartum, delivery, and post-
--- NOTE | 2019-12-30 19:09 | Anesthesiology Progress Note ---
Date of Service December 30, 2019 Anesthesia Post Procedure Vital Signs Vital Signs: Temp Pulse Resp BP Pulse Ox 12/30/19 19:01 80 123/71 12/30/19 18:46 79 119/85 12/30/19 18:28 82 133/60 12/30/19 18:18 84 98 12/30/19 18:13 74 98 12/30/19 18:09 75 132/71 12/30/19 18:08 76 98 12/30/19 18:03 76 99 12/30/19 18:00 18 12/30/19 17:58 70 98 12/30/19 17:53 74 98 12/30/19 17:52 75 137/75 12/30/19 17:48 78 98 12/30/19 17:43 81 98 12/30/19 17:38 76 134/75 99 12/30/19 17:33 36.7 C 77 18 99 12/30/19 17:28 71 98 12/30/19 17:23 76 104/56 L 98 12/30/19 17:18 71 99 12/30/19 17:13 76 99 12/30/19 17:08 70 100 12/30/19 17:07 70 139/77 12/30/19 17:03 73 99 12/30/19 17:00 18 12/30/19 16:58 62 99 12/30/19 16:53 68 99 12/30/19 16:52 66 143/72 H 12/30/19 16:48 64 99 12/30/19 16:43 69 100 12/30/19 16:38 69 99 12/30/19 16:37 72 139/69 12/30/19 16:33 68 99 12/30/19 16:30 18 12/30/19 16:28 64 100 12/30/19 16:24 73 126/60 12/30/19 16:23 71 100 12/30/19 16:18 73 99 12/30/19 16:13 87 100 12/30/19 16:08 65 98 12/30/19 16:07 68 107/61 12/30/19 16:03 60 98 12/30/19 15:58 64 98 12/30/19 15:53 57 L 99 12/30/19 15:52 66 112/66 12/30/19 15:48 63 98 12/30/19 15:43 67 98 12/30/19 15:38 68 115/67 99 12/30/19 15:33 70 99 12/30/19 15:32 18 12/30/19 15:30 18 12/30/19 15:26 59 L 99 12/30/19 15:23 64 123/66 12/30/19 15:21 68 98 12/30/19 15:16 65 98 12/30/19 15:11 65 98 12/30/19 15:08 66 127/69 12/30/19 15:06 66 98 12/30/19 15:01 72 98 12/30/19 15:00 18 12/30/19 14:56 70 98 12/30/19 14:52 69 126/72 12/30/19 14:51 65 98 12/30/19 14:46 67 97 12/30/19 14:41 74 98 12/30/19 14:37 74 112/72 12/30/19 14:36 72 99 12/30/19 14:35 18 12/30/19 14:31 71 98 12/30/19 14:26 73 98 12/30/19 14:24 74 109/67 12/30/19 14:21 69 99 12/30/19 14:16 65 99 12/30/19 14:11 69 99 12/30/19 14:08 75 110/64 12/30/19 14:06 77 98 12/30/19 14:01 74 99 12/30/19 13:56 72 99 12/30/19 13:54 80 102/57 L 12/30/19 13:51 76 98 12/30/19 13:46 77 96 12/30/19 13:41 70 97 12/30/19 13:39 74 116/62 12/30/19 13:36 73 97 12/30/19 13:31 73 98 12/30/19 13:30 18 12/30/19 13:26 74 98 12/30/19 13:22 80 126/79 12/30/19 13:21 77 100 12/30/19 13:16 86 99 12/30/19 13:11 77 99 12/30/19 13:06 81 126/65 98 12/30/19 13:03 75 127/64 12/30/19 13:01 78 97 08/17/20 13:00 82 18 129/61 12/30/19 12:57 79 127/61 12/30/19 12:56 81 97 12/30/19 12:54 78 127/63 12/30/19 12:51 78 128/64 97 12/30/19 12:48 85 132/63 12/30/19 12:46 82 98 12/30/19 12:44 83 129/64 12/30/19 12:42 82 113/66 12/30/19 12:41 83 99 12/30/19 12:36 87 100 12/30/19 12:32 82 137/79 12/30/19 12:31 82 18 88 L 12/30/19 12:30 18 12/30/19 08:56 37.0 C 90 22 133/70 12/30/19 08:08 90 133/70 12/30/19 07:41 102 H 156/78 H Transfer of Care Handoff Completed per policy Notes Mental Status: alert / awake / arousable and participated in evaluation Patient Amnestic to Procedure: Yes Nausea / Vomiting: adequately controlled Pain: adequately controlled Airway Patency, RR, SpO2: stable & adequate BP & HR: stable & adequate Hydration State: stable & adequate Anesthetic Complications: no major complications apparent and Pt Satisfied with anesthetic care
[2019-12-30] MEDS: IBUPROFEN 600 MG TAB PO PRN (22:16)
[2019-12-31] MEDS: IBUPROFEN 600 MG TAB PO PRN ×2 (02:32→23:25)
[2019-12-31 05:50] LABS: Hematocrit (blood only) 35.6 % (37-47); Hemoglobin 11.1 g/dL (12.0-16.0)
--- NOTE | 2019-12-31 06:38 | Obstetrical Progress Note ---
Date of Service <Crystal Fish DO - Last Filed: 12/31/19 07:17> December 31, 2019 Assessment & Plan <Crystal Matthew Fish DO - Last Filed: 12/31/19 07:17> (1) Normal course: - Feels well today. Eating well, voiding well, ambulating well. - Pain well controlled with ibuprofen 600mg Q4H PRN - Routine care -- OOB, ambulation, diet progression as tolerated - After discharge will have 6 week follow-up with Dr. Joaquin. - Will plan for PPTL with Dr. Joyce today. Subjective <Crystal Fish DO - Last Filed: 12/31/19 07:17> Svetlana Marinelli is a 24 y/o female who is PPD #1 following IOL with epidural and spontaneous vaginal delivery at 39 2/7 weeks. She reports feeling well overall this morning. Minimal abdominal cramping and 4/10 pain well managed on analgesics. Voiding without difficulty or dysuria. Tolerating meals overnight without nausea or vomiting. Patient has been able to ambulate some. + passing gas and no bowel movement. Has persistent lochia with some improvement this morning. Currently bottle feeding. Pt does still desire PPTL today. Review of Systems Denies fever or chills. Denies shortness of breath or cough. Denies chest pain. Denies breast pain. Denies dysuria. Denies leg pain or leg swelling. Denies headache or changes in vision. Physical Exam <Crystal Fish DO - Last Filed: 12/31/19 07:17> General: Alert, oriented. No acute distress. Cardiac: Regular rate and rhythm. No murmurs. Respiratory: Clear to auscultation bilaterally a/p, no wheezes/rales/rhonchi. No increased work of breathing. Symmetrical chest rise. No respiratory distress. Abdomen: Soft, nontender, nondistended. Bowel sounds present. Uterus: Uterine fundus firm, palpable at umbilicus. Lower Extremities: No lower extremity edema or swelling. No deep calf pain. Walter's negative bilaterally. Results & Data ([facility]) <Crystal Fish DO - Last Filed: 12/31/19 07:17> Vital Signs (Past 12 Hours) Vital Signs Temp Pulse Pulse Resp BP BP Pulse Ox 12/31/19 04:45 36.7 C 67 17 113/66 97 12/30/19 23:30 36.5 C 73 16 121/70 96 12/30/19 22:05 36.6 C 79 18 129/80 12/30/19 21:46 80 141/67 H 12/30/19 21:31 72 142/66 H 12/30/19 21:16 79 128/63 12/30/19 21:01 77 136/68 12/30/19 20:46 69 143/75 H 12/30/19 20:31 82 133/76 12/30/19 20:16 67 130/76 12/30/19 20:01 71 117/72 12/30/19 19:46 73 117/68 12/30/19 19:31 80 119/67 12/30/19 19:16 71 114/68 12/30/19 19:01 80 123/71 12/30/19 18:46 79 119/85 12/30/19 18:45 18 Laboratory Results H/H 11.1/35.6% at 0541 this AM. <Nasrin Joaquin MD, FACOG - Last Filed: 12/31/19 07:32> Co-Signing Physician Notes Resident Physician Supervision Note: I interviewed and examined the patient. Discussed with Dr. Fish and agree with findings and plan as documented in the note. Any exceptions or clarifications are listed here: Doing well. Is npo for potential PPTL today. Documented By: Nasrin Joaquin MD, FACOG
--- NOTE | 2019-12-31 09:05 | History & Physical Bridge Note ---
Date of Service December 31, 2019 History & Physical Bridge Note I have examined the patient, reviewed the History & Physical and in the interval since the performance of the History & Physical I have noted the following changes of clinical significance: patient is day #1, sure she wants to proceed with bilateral tubal ligation today. she is npo. aware of her alternatives and risks. Risks, alternatives and complications of procedure reviewed with patient and include but are not limited to bleeding, infection, anesthesia, injury to bowel, bladder, vessels, nerves, ureters, delayed complication, failure of procedure with resultant , ectopic which can be medical emergency and regret. Patient desires to proceed and consent signed. .
[2019-12-31] MEDS ORDERED: LACTATED RINGER'S 1,000 ML IV SCH (09:15)
[2019-12-31] MEDS: DOCUSATE SODIUM 100 MG CAP PO SCH ×2 (09:48→20:50)
[2019-12-31] MEDS: PRENATAL VITAMIN 1 TAB PO SCH (09:49)
[2019-12-31] MEDS ORDERED: PROPOFOL IV EMULSION 10 MG/ML 20 ML VIAL IV ONE (17:23)
[2019-12-31] MEDS ORDERED: LIDOCAINE HCL 2% 2 ML VIAL/AMP(20MG/ML) INFIL ONE ×2 (17:23→17:26)
[2019-12-31] MEDS ORDERED: fentaNYL citrate 100 MCG/2 ML VIAL ONE ×2 (17:24→18:21)
[2019-12-31] MEDS ORDERED: SUCCINYLCHOLINE 100MG/5ML SYR IV ONE (17:26)
--- NOTE | 2019-12-31 18:00 | Anesthesiology Consultation ---
Date of Service December 31, 2019 Assessment & Plan Chart Review Chart Review: Acceptable Risk for Surgery Consults Requested none History Surgery Operation Date: 12/31/19 09:30 Proposed Procedures p Post Tubal Ligation - Carolyn Joyce MD, FACOG Height/Weight Height: 5 ft 6 in Weight: 91.777 kg Allergies Allergy/AdvReac Type Severity Reaction Status Date / Time bee venom protein (honey bee) Allergy Severe SHORTNESS Verified 12/31/19 05:49 OF BREATH latex Allergy Intermediate ITCHY Verified 12/31/19 05:49 Penicillins Allergy Unknown UNKNOWN Verified 12/31/19 05:49 Medications Active Medications Generic Name Dose Route Start Last Admin Trade Name Freq PRN Reason Stop Dose Admin Docusate Sodium 100 mg 12/30/19 21:00 12/31/19 09:48 Docusate Sodium 100 Mg Cap PO 01/29/20 20:59 Not Given DAILY@, ZAHRAA Oxytocin 30 units in 500 mls @ 333.333 mls/hr 12/30/19 18:35 12/30/19 18:51 Pitocin IV 01/29/20 18:34 15 units/hr .Q1H30M PRN 250 mls/hr Bleeding Control Administration Protocol 20 UNITS/HR Lactated Ringer's 1,000 mls @ 125 mls/hr 12/31/19 09:15 12/31/19 14:44 Lr IV 01/30/20 09:14 125 mls/hr .Q8H ZAHRAA Infusion Ibuprofen 600 mg 12/30/19 18:34 12/31/19 02:32 Ibuprofen 600 Mg Tab PO 01/29/20 18:33 600 mg Q4H PRN Administration Pain/BRAVO/Cramping/Fever Prenat Multivit/It Investment/Portfolio Manager/Iron/Folic Ac 1 tab 12/31/19 08:00 12/31/19 09:49 Vitamin 1 Tab PO 01/30/20 07:59 Not Given DAILY@08 ZAHRAA NPO Date Last Intake of Fluids: 12/30/19 Time Last Intake of Fluids: 23:59 Last Intake of Fluids Comment: sip of water with motrin Date Last Intake of Solids: 12/30/19 Time Last Intake of Solids: 23:59 Last Intake of Solids Comment: 1372 Past Medical History Medical History Encounter for anatomic survey Encounter for pre-operative examination Fall Normal intrauterine in third trimester (spontaneous vaginal delivery) Varicella Past Family History Family History Mother Congestive heart failure Diabetes Uterine cancer Cardiomyopathy Grandmother (Paternal) Breast cancer Grandfather (Maternal) Myocardial infarction Past Surgical History Surgical History History of adenoidectomy History of myringotomy History of tonsillectomy History of tooth extraction Social History Smoking Status: Never smoker Hx Alcohol Use: No Hx Substance Use: No Physical Exam Vital Signs Last Vital Signs Temp 36.6 C 12/31/19 15:34 Pulse 67 12/31/19 15:34 Resp 18 12/31/19 15:34 BP 118/76 12/31/19 15:34 Pulse Ox 98 12/31/19 15:34 Testing Laboratory Results 12/31/19 05:41
[2019-12-31] MEDS ORDERED: ePHEDrine sulfate 50 MG/ML AMP IV PRN (18:01)
[2019-12-31] MEDS ORDERED: ATROPINE SULFATE 0.1 MG/ML 10ML SYR IV PRN (18:01)
[2019-12-31] MEDS ORDERED: PROMETHAZINE HCL 12.5 MG in SODIUM CHLORIDE 0.9% 50 ML IV PRN (18:01)
[2019-12-31] MEDS ORDERED: ONDANSETRON INJ 2 MG/ML 2 ML VIAL IV PRN (18:01)
[2019-12-31] MEDS ORDERED: METOCLOPRAMIDE HCL INJ 5 MG/ML 2 ML VIAL IV PRN (18:01)
[2019-12-31] MEDS ORDERED: HYDROmorphone INJ 2 MG/ML SYR/VIAL IV PRN (18:01)
[2019-12-31] MEDS ORDERED: BUPIVACAINE 0.5 % 5 MG/1 ML MPF 30ML VIAL ONE (18:05)
--- NOTE | 2019-12-31 18:41 | Post Operative Brief Note ---
PG Immediate Post Op with CF Date of Surgery December 31, 2019 Pre & Post Diagnosis Operation Date: 12/31/19 09:30 Pre-Op Diagnosis: Desire for sterilization Post-Op Diagnosis: Desire for sterilization I identified the patient and participated in the time-out.: Yes Procedure Operation Date: 12/31/19 09:30 Actual Procedures p Post Tubal Ligation(Bilateral), Modified Ashlie - Carolyn Joyce MD, FACOG Surgeon Carolyn Joyce MD, FACOG Chemical Laboratory Assistant none Estimated Blood Loss 0 Findings Consistent with Post-Op Diagnosis (normal fallopian tubes and ovaries seen bilaterally. ) Fluids 700 Specimens Specimen Description: a. portion of right fallopian tube b. portion of left fallopian tube Anesthesia Type General Complications none Disposition Accompanied Patient To Recovery: No Disposition: Recovery Room
[2019-12-31] MEDS ORDERED: DEXAMETHASONE SOD INJ 4 MG/ML VIAL ONE (18:43)
[2019-12-31] MEDS ORDERED: ONDANSETRON INJ 2 MG/ML 2 ML VIAL ONE (18:43)
[2019-12-31] MEDS ORDERED: KETOROLAC 30 MG/ML VIAL ONE (18:43)
--- NOTE | 2019-12-31 18:51 | Operative Report ---
PG Post Operative Report Pre & Post Diagnosis Operation Date: 12/31/19 09:30 Pre-Op Diagnosis: Desire for sterilization Post-Op Diagnosis: Desire for sterilization I identified the patient and participated in the time-out.: Yes Procedure Operation Date: 12/31/19 09:30 Actual Procedures Modified Ashlie Bilateral Tubal Ligation - Carolyn Joyce MD, FACOG Surgeon Carolyn Joyce MD, FACOG Java Portal Developer none Estimated Blood Loss 0 Findings Consistent with Post-Op Diagnosis (normal fallopian tubes and ovaries seen bilaterally. ) Fluids 700 Specimens portions of left and right fallopian tubes. Drains none Anesthesia Type General Complications none Disposition Accompanied Patient To Recovery: No Disposition: Recovery Room Indications 24yo , now ppd#1 from normal vaginal delivery who wants to proceed with permanent sterilization. Aware of risks, alternatives and complications and desired to proceed. Description of Procedure The patient was taken to the operating room and identified. After adequate general anesthesia was obtained she was placed in the supine position and prepped and draped in the usual fashion. The knife was used to make a infraumbilical skin incision that was carried down to the underlying layer of fascia. The fascia was elevated and opened up into sharply and this opening was extended. The patient was placed in steep trendelenberg. The omentum and bowel was kept away from the planned operative site with a moistened laparotomy sponge. Using retractors the right cornua of the uterus was identified. The right fallopian tube that was followed out to its fimbriated end using mariela clamps. The tube was elevated using a mariela clamp and a knuckle of tube was doubly ligated with 2-0 plain suture and transected. The specimen was sent. The stumps were cauterized with the bovie. The retractors were then used to move t oward the left uterine cornua and the mariela clamps were used again to grasp the fallopian tube on this side. The left fallopian tube was identified to its fimbriated end, elevated, double ligated and transected in a similar fashion. The specimen was sent and the stump of tube was cauterized with the bovie. At this point the procedure was terminated. The laparotomy sponge was removed. The fascia was closed in running fashion with 0 vicryl. The subcutaneous fat was irrigated and any bleeding sites were cauterized with bovie cautery. The skin was closed in a subcuticular fashion using 4-0 vicryl. The patient was awoken from her anesthesia and moved to the recovery room in stable condition. All sponge, lap and needle counts were correct x 2. I attest to the content of the Intraoperative Record and any orders documented therein. Any exceptions are noted below. OB Procedure charges OB Charges 52508 PP BTL abd/vag
[2019-12-31] MEDS: fentaNYL citrate 100 MCG/2 ML VIAL IV PRN ×2 (19:02→19:08)
--- NOTE | 2019-12-31 19:27 | Anesthesiology Progress Note ---
Date of Service December 31, 2019 Anesthesia Post Procedure Vital Signs Vital Signs: Temp Pulse Pulse Pulse Resp BP BP 12/31/19 19:15 51 L 17 108/68 12/31/19 19:05 51 L 14 116/79 12/31/19 18:56 36.0 C L 58 L 16 126/81 12/31/19 18:02 37 C 62 16 120/72 12/31/19 15:34 36.6 C 67 18 118/76 12/31/19 11:35 36.4 C L 67 16 99/58 L 12/31/19 07:15 36.6 C 61 16 104/68 12/31/19 04:45 36.7 C 67 17 113/66 12/30/19 23:30 36.5 C 73 16 121/70 12/30/19 22:05 36.6 C 79 18 129/80 12/30/19 21:46 80 141/67 H 12/30/19 21:31 72 142/66 H 12/30/19 21:16 79 128/63 12/30/19 21:01 77 136/68 12/30/19 20:46 69 143/75 H 12/30/19 20:31 82 133/76 12/30/19 20:16 67 130/76 12/30/19 20:01 71 117/72 12/30/19 19:46 73 117/68 12/30/19 19:31 80 119/67 Pulse Ox 12/31/19 19:15 90 12/31/19 19:05 97 12/31/19 18:56 96 12/31/19 18:02 98 12/31/19 15:34 98 12/31/19 11:35 97 12/31/19 07:15 98 12/31/19 04:45 97 12/30/19 23:30 96 12/30/19 22:05 12/30/19 21:46 12/30/19 21:31 12/30/19 21:16 12/30/19 21:01 12/30/19 20:46 12/30/19 20:31 12/30/19 20:16 12/30/19 20:01 12/30/19 19:46 12/30/19 19:31 Pain Intensity Lower Back: Pain Intensity: 3 Abdomen: Pain Intensity: 4 Transfer of Care Handoff Completed per policy Notes Mental Status: alert / awake / arousable and participated in evaluation Patient Amnestic to Procedure: Yes Nausea / Vomiting: adequately controlled Pain: adequately controlled Airway Patency, RR, SpO2: stable & adequate BP & HR: stable & adequate Hydration State: stable & adequate Anesthetic Complications: no major complications apparent
[2019-12-31] MEDS ORDERED: bisacodyL 5 MG TABEC PO SCH (20:00)
[2019-12-31] MEDS: OXYCODONE/ACETAMINOPHEN 5mg/325mg TAB PO PRN (21:18)
[2020-01-01] MEDS: OXYCODONE/ACETAMINOPHEN 5mg/325mg TAB PO PRN (02:50)
--- NOTE | 2020-01-01 06:39 | Obstetrical Progress Note ---
Date of Service <Crystal Fish DO - Last Filed: 01/01/20 07:25> January 01, 2020 Assessment & Plan <Crystal Matthew Fish DO - Last Filed: 01/01/20 07:25> (1) Normal course: - PNL: Rh pos, RI, GBS neg, COVID neg - Feels okay today. Eating well, voiding well, ambulating well. - Pain well controlled with ibuprofen and percocet - Advised patient to start wearing a tight bra to prevent breastmilk from coming in as she does not desire to breastfeed and is only bottle feeding. - Routine care -- OOB, ambulation, diet progression as tolerated - After discharge will have 6 week follow-up with Dr. Joaquin. - Plan for d/c home today. (2) S/P tubal ligation: POD#1 s/p PPTL Encouraged patient to continue to increase ambulation to improve right side pain s/p PPTL Subjective <Crystal Fish DO - Last Filed: 01/01/20 07:25> Svetlana Marinelli is a 24 y/o female who is PPD #2 following IOL with epidural and at 39 2/7 weeks. Pt is also POD #1 following PPTL last night with Dr. Joyce. She reports feeling "okay" this morning. Pt does complain of acute right side pain from the abdomen to the right shoulder; she states that this started about 1 hour ago. Pt also reports diffuse abdominal cramping and overall 6/10 pain. The pain is controlled on analgesics including percocet. Voi ding without difficulty or dysuria. Tolerating meals overnight without nausea or vomiting. Patient has been able to ambulate some. + passing gas and - bowel movement. Has persistent lochia with some improvement this morning. Currently bottle feeding. Review of Systems Denies fever or chills. Denies shortness of breath or cough. Denies chest pain. Denies breast pain. + abdominal pain Denies dysuria. Denies leg pain or leg swelling. Denies headache or changes in vision. Physical Exam <Crystal Fish DO - Last Filed: 01/01/20 07:25> General: Alert, oriented. No acute distress. Cardiac: Regular rate and rhythm. No murmurs. Respiratory: Clear to auscultation bilaterally a/p, no wheezes/rales/rhonchi. No increased work of breathing. Symmetrical chest rise. No respiratory distress. Abdomen: Soft, diffuse tenderness to palpation, nondistended. Bowel sounds pre sent. Laparoscopic incision just distal to umbilicus is covered with bandage and is C/D/I. No signs of infection including erythema or warmth. Uterus: Uterine fundus firm, palpable at umbilicus. Lower Extremities: No lower extremity edema or swelling. No deep calf pain. Walter's negative bilaterally. Results & Data ([facility]) <Crystal Fish, DO - Last Filed: 01/01/20 07:25> Vital Signs (Past 12 Hours) Vital Signs Temp Pulse Pulse Resp BP Pulse Ox 01/01/20 03:00 36.6 C 71 16 112/75 12/31/19 23:45 36.6 C 60 16 113/68 12/31/19 22:05 36.6 C 69 16 119/76 95 12/31/19 21:05 36.4 C L 56 L 16 115/77 98 12/31/19 20:35 36.2 C L 64 18 111/74 96 12/31/19 20:05 36.3 C L 57 L 16 124/81 97 12/31/19 19:50 36.4 C L 65 18 124/80 95 12/31/19 19:35 51 L 14 121/74 94 12/31/19 19:25 36.6 C 58 L 14 114/78 93 12/31/19 19:15 51 L 17 108/68 90 12/31/19 19:05 51 L 14 116/79 97 12/31/19 18:56 36.0 C L 58 L 16 126/81 96 <Carolyn Joyce MD, FACOG - Last Filed: 01/01/20 07:42> Co-Signing Physician Notes Resident Physician Supervision Note: I was present with Dr. Fish during the history and exam. I discussed the case with the resident and agree with the findings and plan as documented in the note. Any exceptions or clarifications are listed here: pt shoulder pain likely due to recent surgery. rec ambulation and time. eating, voiding, ambulating without problem. ok to go home. can send small amount of percocet to pharm if needed. dressing c/d/i, nabs, soft, ff 2 down. appropriate tenderness postop. will d/c home later today after making sure pain under good control. d/c instructions reviewed. Documented By: Carolyn Joyce MD, FACOG
[2020-01-01] MEDS: IBUPROFEN 600 MG TAB PO PRN (06:53)
[2020-01-01] MEDS: DOCUSATE SODIUM 100 MG CAP PO SCH (08:31)
[2020-01-01] MEDS: PRENATAL VITAMIN 1 TAB PO SCH (08:31)
--- NOTE | 2020-01-09 17:56 | Discharge Summary ---
Date of Service Date of admission: December 30, 2019 Date of discharge: January 01, 2020 Admission HPI Per Admitting Provider Svetlana Marinelli is a 24 y/o female currently at 39 2/7 WGA with an DEVIN 01/04/20 as determined by LMP who is here for elective IOL. She has a hx of migraines and is followed by neurology; pt was told to take magnesium and vit B2 daily for BRAVO prevention but she notes that she has not taken either of these in 3 weeks. Pt denies BRAVO at this time. She has been taking Tums for heartburn/nausea; last dose around 0100 this morning. She did not take a PNV throughout the . Pt is GBS+ and has a hx of penicillin allergy. She does desire a PPTL and has signed consent with Dr. Joyce. - contractions; + movement; - fluid loss; - bloody show Had regular appointments with OB. Blood type: O+ Antibody screen: neg Labs 06/06/19 Rubella: immune VDRL/RPR: nonreactive Gonorrhea: neg Chlamydia: neg HIV: neg HbSAg: neg GBS: POSITIVE, allergic to penicillin COVID-19 negative 12/23/19 Other screens: panorama/quad declined Discharge Data Consultations 12/30/19 08:19 Consult Anesthesiology Stat Procedures Performed Operation Date: 12/31/19 09:30 Actual Procedures p Post Tubal Ligation(Bilateral) - Carolyn Joyce MD, [facility] Hospital Course (1) Encounter for sterilization: (2) Normal course: The patient underwent induction of labor and had a vaginal delivery. On day #1 she underwent tubal sterlization. She was stable to be discharged home on day #2. She meeting appropriate criteria and was to followup for 6wks visit. She was given discharge instructions. Coding Level of Care Code None Diagnoses Encounter for sterilization Z30.2 Normal course Z39.2
== END 2020-01-01 12:35 | disposition home or self-care (01) | DRG 798 ==
LOC: 4S1 07:38 → 4S2 22:05